=== PATIENT | female | born 1965 | race Caucasian/White ===

== ENCOUNTER 2017-02-18 13:49 | Emergency (ER) | payer OTHER ==
[2017-02-18 14:03] VITALS: RESP 18; TEMP 98; O2SAT 97
[2017-02-18] MEDS ORDERED: methylPREDNISolone SOD SUCC 125 MG/2 ML VIAL IVP ONE (14:22)
[2017-02-18] MEDS ORDERED: RANITIDINE 50 MG/2 ML VIAL IVP ONE (14:22)
[2017-02-18] MEDS ORDERED: NS 500 ML IV ONE (14:22)
--- NOTE | 2017-02-18 14:30 | EDPHY ---
H & P Time Seen by Provider: 02/18/17 14:08 HPI/ROS: HPI Facial swelling. 51-year-old female by private vehicle. She reports that she developed a left- sided sinusitis involving her maxillary and frontal sinuses yesterday. She brought in [id number] sinusitis medication. She cannot remember the name of this. She took this last night before going to bed. She then woke up this morning with left-sided facial swelling which extends from the maxilla area down through her submandibular tissues and submental tissues on the left side of her neck. She also has a sensation of swelling of the buccal mucosa in her mouth. No fever. No history of trauma. She is on lisinopril and has been taking this medication for 2 months. She denies difficulty breathing. No voice changes. No sensation of swelling or closing of her throat. ROS: Constitutional: No fever, no chills. No weakness. Eyes: No discharge. No changes in vision. ENT: No sore throat. No nasal congestion or rhinorrhea. Respiratory: No cough. No shortness of breath. Cardiac: No chest pain, no palpitations. Gastrointestinal: No abdominal pain, no vomiting, no diarrhea. Genitourinary: No hematuria. No dysuria or increased frequency with urination. Musculoskeletal: No back pain. No neck pain. No myalgias or arthralgias. Skin: No rashes. As above. Neurological: No headache. No focal weakness or altered sensation. Past medical history: High cholesterol, hypertension. Social history: Here by herself. Physical Exam: General Appearance: Alert, no distress. This patient is responding to questions appropriately and in full sentences. This patient appears well- hydrated and well-nourished. Eyes: Pupils equal and round no pallor or injection. No lid edema, erythema or injection. Face, ENT, Mouth: Mucous membranes are moist. The pharyngeal tissues are unremarkable. No edema or swelling. No asymmetry suggestive of abscess. No erythema or exudates. Diffuse swelling of the buccal mucosa on the left side only. No significant gingival swelling. No dental pain on apical compression. She has diffuse swelling/edema involving the soft tissues of the left side of her face from her maxilla down through the submandibular and submental tissues to the mid neck. No palpable abscess or fluid pocket appreciated. There is no erythema. There is no warmth. No stridor on auscultation of her neck. No voice changes. Respiratory: There are no retractions, lungs are clear to auscultation with good air movement bilaterally. Cardiovascular: Regular rate and rhythm. No murmur. Neurological: Motor sensory function is grossly intact. Cranial nerves are normal. Gait is normal. Skin: Warm and dry, no rashes. Musculoskeletal: Neck is supple and nontender. Extremities are symmetrical. All joints range without pain or impingement. Psychiatric: No agitation. No depression. Database: EKG: Imaging: Maxillofacial CT with IV contrast: Procedures: Emergency department course: An IV was placed. She was placed on a monitor. Etiology may possibly be angioedema from her PEPPER-inhibitor. She was started on IV normal saline with 500 cc to be given over 1 hour. She was initially given 50 mg of IV Benadryl, 40 mg of IV Pepcid and 125 mg of IV Solu-Medrol. Vital signs reviewed. She is afebrile. CT imaging of the maxillofacial tissues with IV contrast will be obtained to further evaluate. She consents. Patient is currently awaiting her CT scan. Her care was turned over to Dr. Allan Morales at 3:00 p.m.. Differential Diagnosis: The differential diagnosis on this patient includes but is not limited to angioedema, autoimmune inflammatory condition, infectious etiology. This represents a partial list of diagnoses considered. These considerations are based on history, physical exam, past history, reassessment and diagnostic testing. (Amanda Cuevas) Constitutional: Initial Vital Signs Temperature (C) 36.6 C 02/18/17 14:00 Heart Rate 88 02/18/17 14:00 Respiratory Rate 18 02/18/17 14:00 Blood Pressure 151/77 H 02/18/17 14:00 O2 Sat (%) 97 02/18/17 14:00 O2 Delivery Mode Room Air Allergies/Adverse Reactions: sulfamethoxazole [From Bactrim] Allergy (Verified 02/18/17 13:58) trimethoprim [From Bactrim] Allergy (Verified 02/18/17 13:58) Home Medications: Medication Instructions Recorded Amoxicillin/Clavulanate Pot 875 mg PO BID #14 tab 02/18/17 [Augmentin 875 MG TAB (*)] Lisinopril 02/18/17 predniSONE 40 mg PO DAILY #6 tablet 02/18/17 Medical Decision Making - Diagnostics Imaging Results: CT face and neck with IV contrast reviewed by me and discussed with Dr. Espinoza shows no evidence for abscess, lymphedema. There is lucency around the 1st mandible on the left. There is stranding of the left cheek area consistent with cellulitis. Sinuses look okay. (Allan Morales) ED Course/Re-evaluation: Re-evaluation by me at 3:50 p.m.--patient is stable. I reexamined the patient and reviewed her history. She definitely has left facial swelling. She felt that she may have a dental abscess in that she had tooth pain the last couple days although not today. Again she felt she had sinusitis and took a sinusitis med yesterday. She never did have any tongue swelling. She has been on the lisinopril for about 2 months and was switched from HCTZ to lisinopril because her mother has kidney problems and the physician felt that the lisinopril was more for kidney friend Randal though the patient herself does not have any kidney problems. The patient and I discussed stopping the lisinopril as it can cause tongue swelling and she does have HCTZ at home. We agreed to start the patient on antibiotics and will use some prednisone for the next several days for help with swelling. She is encouraged to follow up with her regular physician in 2 days for re-evaluation. She expresses understanding and agreement Patient is speaking in full sentences. She is handling her secretions. There is no stridor. Pharynx is normal. Tongue is normal. There is swelling to along the left mandible. No obvious abscess along left mandible teeth (Allan Morales) Differential Diagnosis: Differential diagnosis includes angioedema from her antihypertensive medication. It would also include cellulitis and abscess to the left jaw as well as dental infection. CT is consistent with cellulitis but no evidence for abscess (Allan Morales) - Data Points Laboratory Results: Laboratory Results 02/18/17 14:45 02/18/17 14:45 02/18/17 02/18/17 02/18/17 14:45 14:45 14:45 WBC 8.52 10^3/uL 10^3/uL (3.80-9.50) RBC 4.67 10^6/uL 10^6/uL (4.18-5.33) Hgb 14.6 g/dL g/dL (12.6-16.3) Hct 42.3 % % (38.0-47.0) MCV 90.6 fL fL (81.5-99.8) MCH 31.3 pg pg (27.9-34.1) MCHC 34.5 g/dL g/dL (32.4-36.7) RDW 13.1 % % (11.5-15.2) Plt Count 241 10^3/uL 10^3/uL (150-400) MPV 10.1 fL fL (8.7-11.7) Neut % (Auto) 62.1 % % (39.3-74.2) Lymph % (Auto) 26.2 % % (15.0-45.0) [place] % (Auto) 8.9 % % (4.5-13.0) Eos % (Auto) 1.9 % % (0.6-7.6) Baso % (Auto) 0.7 % % (0.3-1.7) Nucleat RBC Rel Count 0.0 % % (0.0-0.2) Absolute Neuts (auto) 5.29 10^3/uL 10^3/uL (1.70-6.50) Absolute Lymphs (auto) 2.23 10^3/uL 10^3/uL (1.00-3.00) Absolute Monos (auto) 0.76 10^3/uL 10^3/uL (0.30-0.80) Absolute Eos (auto) 0.16 10^3/uL 10^3/uL (0.03-0.40) Absolute Basos (auto) 0.06 10^3/uL 10^3/uL (0.02-0.10) Absolute Nucleated RBC 0.00 10^3/uL 10^3/uL (0-0.01) Immature Gran % 0.2 % % (0.0-1.1) Immature Gran # 0.02 10^3/uL 10^3/uL (0.00-0.10) Sodium 143 mEq/L mEq/L (134-144) Potassium 4.3 mEq/L mEq/L (3.5-5.2) Chloride 105 mEq/L mEq/L (97-110) Carbon Dioxide 25 mEq/l mEq/l (22-31) Anion Gap 13 mEq/L mEq/L (8-16) BUN 19 mg/dL mg/dL (7-23) Creatinine 0.9 mg/dL mg/dL (0.6-1.0) Estimated GFR > 60 Glucose 96 mg/dL mg/dL (70-100) Calcium 9.1 mg/dL mg/dL (8.5-10.4) Beta HCG, Qual NEGATIVE Medications Given: Discontinued Medications Diphenhydramine HCl (Benadryl Injection) 50 mg IVP EDNOW ONE Stop: 02/18/17 14:23 Last Admin: 02/18/17 14:48 Dose: 50 mg Sodium Chloride (Ns) 500 mls @ 0 mls/hr IV ONCE ONE; Wide Open PRN Reason: Protocol Stop: 02/18/17 14:23 Last Admin: 02/18/17 14:20 Dose: 500 mls Methylprednisolone Sodium Succinate (Solu-Medrol) 125 mg IVP EDNOW ONE Stop: 02/18/17 14:23 Last Admin: 02/18/17 14:49 Dose: 125 mg Ranitidine HCl (Zantac) 50 mg IVP EDNOW ONE Stop: 02/18/17 14:23 Last Admin: 02/18/17 14:50 Dose: 50 mg Departure - Departure Disposition: Home, Routine, Self-Care Clinical Impression: Swelling of left side of face Condition: Good Instructions: Cellulitis (ED) Additional Instructions: Stop the lisinopril and go back to your HCTZ. Prednisone each day for the next 4 days for swelling. Augmentin as antibiotic. Return for worsening swelling, trouble swallowing or breathing. Recheck at [facility] in 2 days. Referrals: NONE *PRIMARY CARE P,. [Primary Care Provider] - As per Instructions [facility]Outside[facility] - As per Instructions Prescriptions: Amoxicillin/Clavulanate Pot [Augmentin 875 MG TAB (*)] 875 mg PO BID #14 tab predniSONE 40 mg PO DAILY #6 tablet
[2017-02-18 14:52] LABS: % IMMATURE GRANULYOCYTES 0.2 % (0.0-1.1); ABSOLUTE IMMATURE GRANULOCYTES 0.02 10^3/uL (0.00-0.10); ADD DIFF? NO; ADD MORPH? NO; ADD SCAN? NO; ATYPICAL LYMPHOCYTE FLAG 0 (0-99); FRAGMENT RBC FLAG 0 (0-99); HEMATOCRIT 42.3 % (38.0-47.0); HEMOGLOBIN 14.6 g/dL (12.6-16.3); LEFT SHIFT FLG 0 (0-99); LIPEMIA HEMOLYSIS FLAG 90 (0-99); MEAN CELL HEMOGLOBIN 31.3 pg (27.9-34.1); MEAN CELL HEMOGLOBIN CONCENTR. 34.5 g/dL (32.4-36.7); MEAN CELL VOLUME 90.6 fL (81.5-99.8); MEAN PLATELET VOLUME 10.1 fL (8.7-11.7); PLATELET CLUMPS FLAG 0 (0-99); PLATELET COUNT 241 10^3/uL (150-400); RED BLOOD CELL COUNT 4.67 10^6/uL (4.18-5.33); RED CELL DISTRIBUTION WIDTH 13.1 % (11.5-15.2)
[2017-02-18] MEDS ORDERED: IOPAMIDOL (ISOVUE-300) 100 ML BTL ONE (14:56)
[2017-02-18 15:05] LABS: ANION GAP 13 mEq/L (8-16); CALCIUM 9.1 mg/dL (8.5-10.4); CARBON DIOXIDE 25 mEq/l (22-31); CHLORIDE 105 mEq/L (97-110); CREATININE 0.9 mg/dL (0.6-1.0); GLOMERULAR FILTRATION RATE > 60; GLUCOSE 96 mg/dL (70-100); POTASSIUM 4.3 mEq/L (3.5-5.2); SODIUM 143 mEq/L (134-144)
[2017-02-18] MEDS ORDERED: AMOXICILLIN/CLAVULANATE POT 875/125 MG TAB PO ONE (16:00)
[2017-02-18] MEDS ORDERED: predniSONE 20 MG TAB PO ONE (16:01)
[2017-02-18 16:25] VITALS: BP 157/80; PULSE 85
== END 2017-02-18 16:24 | disposition home or self-care (01) ==
LOC: CED 13:49
DX: R22.0 Localized swelling, mass and lump, head (principal); I10 Essential (primary) hypertension
CPT/HCPCS: 70487-PO; 80048-PO; 84703-PO; 85025-PO; 96374; J1200; J2780; Q9967